=== PATIENT | female | born 1950 | race Caucasian/White ===

== ENCOUNTER 2023-09-05 11:03 | Emergency (ER) | payer MEDICARE, OTHER ==
[2023-09-05] MEDS: Lidocaine 1% with EPINEPHrine 1:100,000 50 ML MDV SUBCUT STA (12:27)
[2023-09-05] MEDS: Bacitracin Oint 1 GM U/D Packet TOP ONE (12:28)
== END 2023-09-05 14:00 | disposition home or self-care (01) ==
LOC: JP.ED 11:03
DX: S61.411A Laceration without foreign body of right hand, initial encounter (principal); S50.02XA Contusion of left elbow, initial encounter; I10 Essential (primary) hypertension; E78.00 Pure hypercholesterolemia, unspecified; E03.9 Hypothyroidism, unspecified; Z90.710 Acquired absence of both cervix and uterus; Z79.899 Other long term (current) drug therapy; Z88.8 Allergy status to other drugs, medicaments and biological substances; Z88.1 Allergy status to other antibiotic agents; W01.110A Fall on same level from slipping, tripping and stumbling with subsequent striking against sharp glass, initial encounter
CPT/HCPCS: 12001; 12002; 73080-26-LT; 73080-LT; 99283